=== PATIENT | female | born 1930 | race Caucasian/White ===

== ENCOUNTER 2017-07-06 13:25 | Outpatient (CLI) | payer MEDICARE, OTHER ==
--- NOTE | 2017-07-06 16:14 | RAD ---
PA AND LATERAL VIEWS OF CHEST: HISTORY: Dyspnea. COMPARISON: 09/04/2015 FINDINGS: The heart size is normal. The aorta is tortuous. No focal areas of consolidation, pneumothorax, fr ank pulmonary edema, or pleural effusions are seen. There are postop changes of vertebroplasty in t he lower thoracic spine. There are degenerative changes in the spine. IMPRESSION: No radiographic evidence of acute cardiopulmonary process. POS: DANIEL
--- OUTSIDE RECORDS SUMMARY | 2017-07-08 20:56 | XMS | Clinical Summary ---
:1930 Author Organization [facility] Address [address] [place] [address] Phone Care Team Providers Name Role Phone , Primary Care Provider Unavailable Allergies Not on File Current Medications Not on file Active Problems Not on file Social History Tobacco Use Types Packs/Day Years Used Date Never Assessed Sex Assigned at Date Recorded Not on file Last Filed Vital Signs Not on file Plan of Treatment Not on file Results Not on filefrom Last 3 Months
== END 2017-07-06 13:26 | disposition home or self-care (01) ==
LOC: RAD 13:25
PROVIDERS: ATTEND Internal Medicine Pulmonary Disease
DX: R06.00 Dyspnea, unspecified (principal)
CPT/HCPCS: 71020

== ENCOUNTER 2017-08-18 12:54 | Outpatient (CLI) | payer MEDICARE, OTHER ==
--- NOTE | 2017-08-18 14:21 | CT ---
CT THORAX HIGH RESOLUTION: Date: 08/18/17 HISTORY: 86-year-old female with pulmonary fibrosis. Dyspnea. TECHNIQUE: 1.25 mm slice thickness axial images with 10 mm intervals obtained through the lungs with the patient supine. Patient is unable to assume prone position. Because of the large intervals (gaps), this stud y is not intended to evaluate for neoplasm, infection, or any entity other than pulmonary fibrosis. FINDINGS: There is borderline or mild bronchiectasis involving bilateral lower lobes, upper lobes, and right mi ddle lobe. There are minimal subpleural reticular densities at the bilateral lung bases. There is no honeycombing. No ground-glass changes. There is an approximately 5 mm noncalcified pulmonary nodule i n the anterior segment of right upper lobe (axial image 9 of 26, series 2). There is a 4 mm noncalcif ied pulmonary nodule in the right upper lobe (axial image 8 of 26, series 2). The former was present on a 08/29/15 CT angiogram of the chest and is stable. The latter is not identified on prior scan. Cu rrently, there is no pleural effusion or pneumothorax. There is no cardiomegaly. There is atheroscler otic calcification of the aortic arch. There is tortuosity of the thoracic aorta. IMPRESSION: 1. No convincing evidence of UIP/IPF (usual interstitial pneumonia/idiopathic pulmonary fibrosis). 2. Minimal bronchiectasis. 3. Nonspecific small right upper lobe pulmonary nodules, incompletely assessed. 4. Atherosclerosis and tortuosity of thoracic aorta. POS: [facility]
--- NOTE | 2017-08-31 08:13 | PFT ---
PATIENT HISTORY: HEIGHT: 64 IN WEIGHT: 161 LBS SMOKER: NO HOW LONG: PACKS PER DAY: PRODUCTIVE COUGH: LUNG DISEASE: PHYSICIAN INTERPRETATION FINAL REPORT: Patient and fair effort and cooperation FVC 1.74 (72%), FEV1 1.30 (81%), FEV1/FVC 0.75. TLC 4.13 (92%), FRC 2.30 (83%), RV 2.0 (96%). Diffusion 8.48 (54%). There is a mild reduction to the FVC. The FEV1 falls within the lower limits of normal. The ratio does not suggest clear evidence of obstructive airflow limitation, though the TLC is normal, suggesting there is relative hyperexpansion. There is a nonsignificant improvement in the FEV1 and the FVC following administration of bronchodilation. The total lung capacity and residual volume fall within the normal limits. Diffusion capacity is moderately impaired. IMPRESSION: Overall, these pulmonary functions studies are most consistent with mild obstructive air flow limitation and a moderate reduction in gas exchange. No prior studies are available for comparison. Clinical and radiographic correlation should be considered. Central Scheduler: EDGAR Collar Feller: EDGAR HOUSTON
== END 2017-08-18 12:55 | disposition home or self-care (01) ==
LOC: CT 12:54
PROVIDERS: ATTEND Internal Medicine Critical Care Medicine
DX: J84.10 Pulmonary fibrosis, unspecified (principal); R06.00 Dyspnea, unspecified; J47.9 Bronchiectasis, uncomplicated; I70.0 Atherosclerosis of aorta; I77.1 Stricture of artery; R91.8 Other nonspecific abnormal finding of lung field
CPT/HCPCS: 71250; 94060; 94727; 94729

== ENCOUNTER 2019-10-09 19:01 | Inpatient (IN) | payer MEDICARE, OTHER ==
[2019-10-09] MEDS ORDERED: HYDROcodone/Acetaminophen 5/325 mg Tablet PO PRN ×2 (19:36)
[2019-10-09] MEDS ORDERED: Ondansetron PF 4 MG/2 ML Vial IVP PRN (19:36)
[2019-10-09] MEDS ORDERED: Milk Of Magnesia 30 ML UDCUP PO PRN (19:37)
[2019-10-09] MEDS ORDERED: Fleet Enema 133 ML BOT PR PRN (19:37)
[2019-10-09] MEDS ORDERED: cloNIDine 0.1 MG TAB PO PRN (19:37)
[2019-10-09] MEDS ORDERED: Bisacodyl 10 MG SUPP PR PRN (19:37)
[2019-10-09] MEDS: Sodium Chloride 0.9% 1,000 ML IV SCH (20:16)
[2019-10-09] MEDS: hydrALAZINE 10 MG TAB PO SCH (20:22)
[2019-10-09] MEDS: Lisinopril 20 MG TAB PO SCH (20:22)
[2019-10-09] MEDS: traMADol HCl 50 MG TAB PO PRN (20:22)
[2019-10-09] MEDS: cycloSPORINE 0.05% Ophthalmic Droperette EA EYE SCH (20:23)
[2019-10-09] MEDS: Carvedilol 25 MG TAB PO SCH (20:23)
[2019-10-09] MEDS: Timolol 0.5% Ophth Soln 5 ml Bottle EA EYE SCH (20:23)
--- NOTE | 2019-10-09 21:13 | HP ---
CHIEF COMPLAINT: Fall with head injury, headache HISTORY OF PRESENT ILLNESS: Ms. Baum, who prefers to go by Pat, was transferred from [facility] Emergency Department for a higher level of care after she sustained a fall resulting in a left subdural hematoma and multiple sites of intracranial hemorrhage. She was admitted to CCU for close neurologic monitoring. The patient is extremely hard of hearing, so the majority of the history was provided by her family at bedside. The patient sustained a fall at approximately 11:30 this morning. The patient lives at home alone, however, her daughter reportedly lives next door. The patient wears a cell phone around her neck and was able to call her daughter when she fell. The patient hit the back of her head and sustained an occipital laceration, which was repaired with prieto in the emergency department prior to transfer. The patient is complaining of headache. Daughter reports that the patient had no complaints of neck pain. The patient has chronic left arm and leg weakness that is residual status post right CVA in 2012. The patient is on Plavix and at 325 mg aspirin due to her stroke history. Family denies any cardiac history. Her daughter notes that she has exhibited more generalized weakness with intermittent falls over the recent months. Patient typically uses a tatyana walker to assist with ambulation. Daughter states that the patient seems to have difficulty raising her left leg up to take steps, therefore she has a shuffled gait. The family denies that she has footdrop, just says that she has difficulty picking up the leg to take steps. Otherwise, patient has good movement of her right side extremities. PHYSICAL EXAMINATION: The patient is somnolent, but awakens to verbal stimuli. She responds to questions appropriately, however, she requires repeated questioning and verbal instructions given her extreme hearing deficit. Patient has her bilateral hearing aids in place, however, her daughter states that the cervical collar the patient was wearing seems to be interfering with the hearing aid functioning. The patient is able to state her location. Pupils are equal, round, and reactive to light. The patient extraocular movements are intact. CN II-XII intact. No slurred speech. Extreme weakness and minimal movement of the left upper and lower extremities. Good movement and 4/5 strength in her right upper and lower extremities. Good anesthesia attending strength in the right hand, however only minimal muscle twitch with anesthesia attending strength on the left. The patient has a posterior scalp laceration with prieto in place. IMPRESSION AND DIAGNOSES: 1. Left subdural hematoma and multiple intracranial hemorrhages status post fall. 2. History of right side CVA, for which patient takes Plavix and 325 mg aspirin. 3. Type 2 diabetes mellitus. 4. Dyslipidemia. 5. Hypertension. PLAN: At this time, I have reviewed this case and all imaging with Dr. Guzmán. The patient was transferred to the [facility] in [place] for a higher level of care and CCU admission for close neurologic monitoring. Repeat head CT without contrast tomorrow morning. Q1 hour neuro checks. Head of bed 30 degrees. We will keep patient on bed rest overnight until we have obtained a repeat head CT, and if this is stable then we will begin to mobilize the patient and have her seen by PT/OT. We will hold all blood thinners at this time. Clear liquid diet. We have consulted our medical colleagues to assist with medical management. Family inquired about her anticipated plan of care upon discharge from the hospital. Discussed that perhaps patient would benefit from inpatient rehab versus home health physical therapy. We will discuss this further after we see how patient is doing well in the hospital. We will see patient in the morning. Call sooner for any neurologic changes or other concerns. This was a 50 minute initial visit in which greater than 50% of the time was spent in review of records, imaging, evaluation, examination of patient, and formulation of a plan. The remaining time was spent in counseling and coordination of care. Job ID: [id number] MTDD
[2019-10-10 06:04] LABS: #Lymphocytes 0.5 thou/uL (1.20-3.40); #Monocytes 1.1 thou/uL (0.11-0.59); #Neutrophils 8.6 thou/uL (1.40-6.50); %Basophils 0.2 % (0.0-1.0); %Eosinophils 0.3 % (0.0-10.0); %Lymphocytes 4.4 % (21.0-51.0); %Monocytes 11.1 % (0.0-10.0); Hemoglobin 11.7 g/dL (12.0-16.0); Mean Corpuscular HGB CONC 31.6 g/dL (32.0-36.0); Mean Corpuscular Hemoglobin 25.8 pg (27.0-31.0); Mean Corpuscular Volume 81.7 fL (78.0-98.0); Mean Platelet Volume 7.8 fL (7.4-10.4); Platelet Count 235 thou/uL (130-400); RBC Distribution Width 14.7 % (11.5-14.5); Red Blood Cell (RBC) Count 4.55 mill/uL (4.20-5.40); White Blood Cell (WBC) Count 10.2 thou/uL (4.8-10.8)
[2019-10-10 06:10] LABS: INR-International Normal Ratio 1.1; PTT 29.1 SEC (22.9-36.1)
[2019-10-10 06:22] LABS: Anion Gap 13 mmol/L (10-20); BUN (Urea Nitrogen) 17 mg/dL (9.8-20.1); Calc. Creatinine Clearance 57 mL/min (70-130); Calcium 8.2 mg/dL (7.8-10.44); Carbon Dioxide 26 mmol/L (23-31); Chloride 96 mmol/L (98-107); Estimated GFR-MDRD 79; Glucose 128 mg/dL (83-110); Potassium 3.3 mmol/L (3.5-5.1); Sodium 132 mmol/L (136-145)
--- NOTE | 2019-10-10 08:08 | CT ---
CT BRAIN WITHOUT CONTRAST: HISTORY: Left subdural hemorrhage/intracranial bleeds. COMPARISON: 09/11/2018 10/09/2019 TECHNIQUE: Multiple contiguous axial images were obtained in a CT of the brain without contrast. FINDINGS: There are scattered hypodensities in the subcortical and periventricular white matter, likely seconda ry to small vessel ischemic disease. There are developing contusions in the bilateral frontal lobes a nd in the left temporal lobe. This is greatest in the left temporal region. Blood is seen along the t entorium, along the anterior falx. There is also a small amount of subdural blood along the left fron toparietal convexity. This measures approximately 9 mm in thickness, which is slightly larger than th e prior examination. There is also slight shift of the midline to the right by approximately 3 mm. No downward herniation is seen. IMPRESSION: Evolving subdural and cerebral contusions, as above. There is slight increased shift of the midline a nd slight increased size of the left frontal parietal subdural hemorrhage. POS: C
[2019-10-10] MEDS: Amlodipine 10 MG TAB PO SCH (09:11)
[2019-10-10] MEDS: metFORMIN 500 MG TAB PO SCH ×3 (09:12→17:47)
[2019-10-10] MEDS: Carvedilol 25 MG TAB PO SCH ×2 (09:12→20:29)
[2019-10-10] MEDS: hydrALAZINE 10 MG TAB PO SCH ×3 (09:12→20:29)
[2019-10-10] MEDS: cycloSPORINE 0.05% Ophthalmic Droperette EA EYE SCH ×2 (09:14→20:38)
[2019-10-10] MEDS: Lisinopril 20 MG TAB PO SCH ×2 (09:14→20:29)
[2019-10-10] MEDS: Sodium Chloride 0.9% 1,000 ML IV SCH ×2 (09:16→13:30)
[2019-10-10] MEDS: traMADol HCl 50 MG TAB PO PRN ×2 (10:44→17:14)
[2019-10-10] MEDS: Timolol 0.5% Ophth Soln 5 ml Bottle EA EYE SCH ×2 (10:46→20:39)
--- NOTE | 2019-10-10 11:37 | PRG ---
DATE OF SERVICE: This is a 30-minute initial visit note, in which 30 minutes spent reviewing the imaging record, evaluation and examination of the patient, formulation of plan. Greater than 50% time was spent in counseling on Melia Baum. Ms. Baum is a pleasant 88-year-old woman. She lives alone. Her daughter does help with her daily activities. She fell on aspirin and Plavix, on these medications for history of CVA. She suffered a left convexity acute subdural hematoma in a contrecoup fashion along the falcine, acute subdural hematoma, and a coup left occipital subdural hematoma. There are also bifrontal hemorrhagic contusions, all of which are blossomed this morning. She remains neurologically intact and has severe presbycusis. She again has gotten worse. I will repeat a head CT tomorrow. I have discussed in detail with the daughter the poor outcomes following surgery or any nonoperative management in particular for acute subdural hematoma in the elderly, in particular at the age of 88 and about to be 89. She is very adamant that the patient would not want any of these treatments, and as such, she has made her DNR/DNI. We will continue to follow at this point, but obviously there is nothing warranting surgical intervention at this time. Job ID: [id number]
[2019-10-10] MEDS: LIFITEGRAST 5% EA EYE SCH ×2 (12:00→20:39)
[2019-10-10] MEDS ORDERED: Dextrose 50% Abboject 50 ML SYRINGE SLOW IVP PRN (12:37)
[2019-10-10] MEDS ORDERED: Dextrose 5% in Water 1,000 ML IV PRN (12:37)
[2019-10-10] MEDS ORDERED: HumaLOG 300 UNITS/3 ML VIAL SC PRN ×2 (12:37)
[2019-10-10] MEDS ORDERED: Potassium Chloride 20 MEQ TAB PO SCH (13:30)
--- NOTE | 2019-10-10 13:40 | CON ---
DATE OF CONSULTATION: PRIMARY CARE PHYSICIAN: Aren Elizalde MD. PRIMARY TEAM NEUROSURGERY: Dr. Guzmán. REASON FOR CONSULTATION: Medical management. HISTORY OF PRESENT ILLNESS: This is an 88-year-old white female with history of previous CVA, left-sided weakness, chronic dizziness, who had multiple falls in the last few months. She did have a fall at home. She hit the back of her head, was brought in to the [facility]. There, she was noted to have a subdural hematoma along with bilateral frontal intraparenchymal hemorrhage and subarachnoid hemorrhage. She was transferred here for neurosurgical management. Dr. Guzmán admitted her to the hospital, was watched here in the ICU overnight. She had a repeat CT scan today that showed blooming of the intraparenchymal hemorrhage. The patient was on aspirin and Plavix for her previous stroke after failure of ASA alone. These are being held currently. The patient is very hard of hearing and is not able to really give any history or respond to anything besides some very basic questions. The family states that this is similar to her normal mental status before the head injury. Three of her daughters are at the bedside. She also has two sons. They have made her do not attempt resuscitation. PAST MEDICAL HISTORY: 1. Hypertension. 2. Dyslipidemia. 3. Diabetes mellitus type 2, on oral hypoglycemics. 4. Previous cerebrovascular accident when her was dying with residual left-sided weakness. 5. Compression fractures of the thoracic and lumbar spine. 6. Possible gastroesophageal reflux disease. 7. Deconditioning. 8. Colon cancer in 1981, status post resection. PAST SURGICAL HISTORY: 1. Colon resection. 2. Total left knee arthroplasty. 3. Pinning of left femoral neck fracture. 4. Foot surgery. 5. Hysterectomy. 6. Toe amputations. 7. Tonsillectomy. SOCIAL HISTORY: No tobacco, alcohol, or illicit drug use. Patient lives by herself near her daughters in [place]. FAMILY HISTORY: Multiple family members including parents and her one of her daughters with early colon cancer. ALLERGIES: 1. CODEINE. 2. SULFA ANTIBIOTICS. 3. GENTAMICIN. 4. COUMADIN. 5. CLAMS. CURRENT MEDICATIONS: 1. Acetaminophen 650 mg each night. 2. Aspirin 325 mg daily. 3. Clopidogrel 75 mg daily. 4. MiraLAX 17 g p.o. daily as needed. 5. Trazodone 50 mg at night. 6. Vitamin B12 supplement one tablet every other day. 7. Amlodipine 10 mg daily. 8. Artificial Tears as needed. 9. Atorvastatin 10 mg daily. 10. Dulcolax 10 mg per rectum daily as needed. 11. Carvedilol 25 mg twice a day. 12. Vitamin D 1000 units daily. 13. Clonidine 0.1 mg 3 times a day. 14. Hydralazine 10 mg 3 times a day. 15. Latanoprost one drop in each eye daily. 16. Xiidra one drop in each eye twice a day. 17. Lisinopril 20 mg twice a day. 18. Magnesium hydroxide as needed. 19. Metformin 500 mg 3 times a day. 20. Sertraline 50 mg daily. 21. Timolol 1 drop in each eye twice a day. REVIEW OF SYSTEMS: Patient unable to give review of systems secondary to her head injury and almost complete deafness. PHYSICAL EXAMINATION: VITAL SIGNS: Blood pressure 155/66, pulse 77, respirations 20, temperature 97.8 , O2 saturation 97% on room air. GENERAL: This is a well-developed, well-nourished white female, in no acute distress. HEENT: Pupils equal, round, and reactive to light. Oropharynx clear without lesions, erythema, or exudate. NECK: Supple. No lymphadenopathy. No thyroid nodules or enlargement. HEART: Regular rate and rhythm. No murmurs, rubs, or gallops. LUNGS: Clear to auscultation bilaterally. No wheezes, crackles, or rhonchi. ABDOMEN: Soft, nontender to palpation. Normoactive bowel sounds. No hepatosplenomegaly or other masses. EXTREMITIES: No clubbing, cyanosis, or edema. SKIN: The patient has a stapled laceration to posterior scalp. No other skin lesions noted. NEUROLOGIC: The patient is alert. She is not able to answer questions about orientation. I was able to get her to understand, asking if she had any pain. She said some, but she could not tell me or would not tell me where it was. She is moving all extremities spontaneously. Her left is significantly weaker than her right though, this is chronic per the family. No significant facial droop to my exam. Her reflexes appear slightly increased on the left side compared to the right. LABORATORY DATA: Sodium of 132, potassium 3.3, chloride 96, glucose 128. The basic metabolic panel is normal otherwise. Coagulation profile normal. CBC is grossly within normal limits. CT of the brain done today shows evolving subdural and cerebral contusions with a slightly increased shift of the midline and slight increased size of the left frontoparietal subdural hemorrhage. ASSESSMENT: 1. Traumatic head injury with subdural hematomas and intraparenchymal hemorrhage as above, being managed by Neurosurgery. Aspirin and Plavix being held and being observed closely. The family does not believe that she would want any surgical intervention even if it became indicated, which she does not at this time. 2. Hypertension. The patient has resumed all her home antihypertensives and her blood pressure is under decent control at this time. 3. Hyperlipidemia. The patient is back on her statin. 4. Previous stroke. We will have to hold aspirin and Plavix for the near future. Can resume whenever Neurosurgery deems it is safe. We will continue statin and blood pressure control. 5. Gastrointestinal prophylaxis with a history of possible gastroesophageal reflux disease. We will go ahead and start her on some Pepcid twice a day. 6. Deep venous thrombosis prophylaxis. The patient has SCDs in place. She cannot receive any pharmacologic prophylaxis at this time due to her intracranial hemorrhage. CODE STATUS: Patient is a do not attempt resuscitation. Her medical decision makers are her daughters who are at the bedside. Her primary caregiver I believe is her daughter, Shira Baum. Thank you very much. Job ID: [id number] [facility]
--- NOTE | 2019-10-10 14:57 | CON ---
DATE OF CONSULTATION: 10/10/2019 SERVICE: Pulmonary Medicine. REASON FOR CONSULT: ICU patient. HISTORY OF PRESENT ILLNESS: The patient is an 88-year-old white female with past medical history significant for essentially nothing, other than advanced age and frequent falls. In the standing position, the patient sustained a mechanical fall. She called her daughter for help. She has sustained laceration on the head, and was subsequently brought to the Emergency Department. At that location, CT scan was performed, demonstrated small intracranial hemorrhage. That being said, neurologically, she did not have any significant obvious deficits. She denies any current fevers, chills, cough, sputum production, nausea, vomiting, or diarrhea. Prior to this event, she was in her usual state of health. PAST MEDICAL HISTORY: 1. Type 2 diabetes mellitus. 2. Hypertension. 3. Dyslipidemia. 4. History of CVA. 5. Gastroesophageal reflux disease. 6. History of compression fractures of the lumbar spine. 7. Deconditioning. PAST SURGICAL HISTORY: 1. Colon resection. 2. Total knee arthroplasty. 3. Foot surgery. 4. Hysterectomy. 5. [place] amputations. 6. Tonsillectomy. ALLERGIES: CODEINE AND SULFA. MEDICATIONS: List of her inpatient medications was reviewed. No specific updates were made at this time. FAMILY HISTORY: Noncontributory. SOCIAL HISTORY: Negative for alcohol, tobacco, or illicit drug use. She has no exposure to chemicals, dust, asbestos, or tuberculosis. REVIEW OF SYSTEMS: General, head, ears, eyes, nose, throat, cardiovascular, respiratory, GI, , musculoskeletal, neurologic, and skin are negative except as mentioned in HPI. PHYSICAL EXAMINATION: VITAL SIGNS: Afebrile, pulse 63, blood pressure 111/54, respirations 20, and saturation 96%, currently on room air. GENERAL: The patient is awake and alert, in no apparent distress. LUNGS: Decent air entry with no prolonged expiratory phase or wheezing present. HEART: Normal rate. Regular. ABDOMEN: Soft, nontender, and nondistended. Bowel sounds are positive. MUSCULOSKELETAL: No cyanosis or clubbing. No pitting in the bilateral lower extremities. NEUROLOGIC: Grossly nonfocal. LABORATORY DATA: WBC 10.2, hemoglobin 11.7, and platelets 235,000. INR 1.1. Potassium 3.3. Basic metabolic profile is otherwise unremarkable. IMAGING DATA: CT of the brain demonstrates intraparenchymal hematoma, as well as a subdural on the left. Minimal shift of the midline. ASSESSMENT: 1. Intraparenchymal hemorrhage. 2. Subdural hematoma. 3. Mechanical fall. DISCUSSION AND PLAN: We will watch her neurologic status very closely. Should she have any significant neurologic deterioration, Neurosurgery will be contacted. Pulmonary will continue to follow along. At this point, the patient would decline any advanced interventions like chest compressions or endotracheal intubation in the event that she has significant neurologic decline. Critical Care will follow. 70 minutes have been devoted to this patient in various activities. I personally reviewed all imaging studies and laboratory data noted within this document. For fifty percent of this time, I was interacting with the patient at the bedside or coordinating care with the care team. For the remainder of the time I was immediately available to the patient in the hospital unit. Job ID: [id number] MTDD
[2019-10-10] MEDS: Atorvastatin Calcium 10 MG TAB PO SCH (17:47)
[2019-10-10] MEDS: Famotidine 20 MG TAB PO SCH (20:29)
[2019-10-11] MEDS: Sodium Chloride 0.9% 1,000 ML IV SCH (06:28)
[2019-10-11 07:36] LABS: Anion Gap 10 mmol/L (10-20); BUN (Urea Nitrogen) 19 mg/dL (9.8-20.1); Calc. Creatinine Clearance 62 mL/min (70-130); Calcium 8.2 mg/dL (7.8-10.44); Carbon Dioxide 27 mmol/L (23-31); Chloride 99 mmol/L (98-107); Estimated GFR-MDRD 87; Glucose 117 mg/dL (83-110); Potassium 4.1 mmol/L (3.5-5.1); Sodium 132 mmol/L (136-145)
--- NOTE | 2019-10-11 07:56 | CT ---
Final report on overnight Direct Radiology study EXAMINATION: CT THE BRAIN WITHOUT CONTRAST INDICATION: Follow-up subdural hemorrhage COMPARISON: CT the brain dated October 10, 2019 4:41 AM FINDINGS: The subdural collection most prominently overlying the left anterior frontal convexity is relatively stable in size measuring between 9 and 10 mm. When accounting for slight differences in angulation and technique, this is likely stable. The 3 mm of [id number] midline shift is stable. The subdural hematoma collection along the right aspect of the falx cerebri is stable. The subdural collection overlying the right tentorium is stable appearing. Small amount of subdural collection overlies the p arietal convexities bilaterally which is stable. The parenchymal contusions involving the right frontal lobe and both anterior temporal lobes are stable. Basilar cisterns remain patent. The moderat e chronic small vessel white matter ischemic changes similar appearing. Paranasal sinus disease and mastoid air cells disease is stable. The skull is intact. IMPRESSION: I agree with the preliminary report provided. There is stable scattered subdural hematoma that is largely stable when accounting for slight differences in technique. There is residual 3 mm of [id number] midline shift. The largest subdural hematoma collection overlies the left anterior f rontal convexity measuring approximately 9 mm. Additional subdural collections are seen along the falx cerebri, bilateral parietal convexities and along the right tentorium. The parenchymal contusion s involving the right frontal lobe and both anterior temporal lobes are stable appearing.
[2019-10-11] MEDS: hydrALAZINE 10 MG TAB PO SCH ×3 (08:42→20:48)
[2019-10-11] MEDS: Carvedilol 25 MG TAB PO SCH ×2 (08:42→20:48)
[2019-10-11] MEDS: metFORMIN 500 MG TAB PO SCH ×3 (08:43→17:00)
[2019-10-11] MEDS: Lisinopril 20 MG TAB PO SCH ×2 (08:43→20:47)
[2019-10-11] MEDS: Amlodipine 10 MG TAB PO SCH (08:44)
[2019-10-11] MEDS: Timolol 0.5% Ophth Soln 5 ml Bottle EA EYE SCH ×2 (08:48→20:45)
[2019-10-11] MEDS: Famotidine 20 MG TAB PO SCH ×2 (09:39→20:48)
[2019-10-11] MEDS: cycloSPORINE 0.05% Ophthalmic Droperette EA EYE SCH ×2 (09:39→20:46)
[2019-10-11] MEDS: LIFITEGRAST 5% EA EYE SCH ×2 (09:39→20:44)
[2019-10-11] MEDS: Acetaminophen 325 MG TAB PO PRN ×2 (10:47→15:28)
--- NOTE | 2019-10-11 11:01 | PRG ---
DATE OF SERVICE: 10/11/2019 Ms. Baum is an 88-year-old female, who was admitted 2 days ago, status post fall, on aspirin and Plavix with prior history of right-sided CVA. The patient's repeat brain CT this morning remains stable overall. The patient is very hard of hearing and has difficulty with following verbal commands. However, she has good movement on the right side of her body. Left arm and leg are residually weak, status post stroke. Overall, the patient appears stable today compared to her prior evaluations. She opens her eyes quickly to tactile stimuli when she is padded on the arm. She is able to move her arm and leg and has 4+/5 strength in the handgrip on the right side. Overall, she remains neurologically intact. We will continue to monitor her neurologic status at this time. There is no current indication for surgical intervention. Her sodium has remained low at 132, both yesterday and today. We will encourage her to drink Gatorade and she will be on IV normal saline. Her potassium was low at 3.3 yesterday, but has improved to 4.1 today after receiving the potassium replacement protocol. We will continue to monitor the patient. Our hope is that she will begin to mobilize with physical therapy and occupational therapy. We will check on patient again tomorrow morning. Call for any neurologic changes or concerns. Job ID: [id number]
--- NOTE | 2019-10-11 15:47 | PRG ---
DATE OF SERVICE: 10/11/2019 SERVICE: Pulmonary Medicine. INTERVAL HISTORY: The patient is doing fine from a respiratory standpoint. Mentation-garner, she is having some waxing and waning neurologic changes. Sometimes, her speech affected, but otherwise, there had not been a significant change. PHYSICAL EXAMINATION: VITAL SIGNS: Afebrile; pulse 66; blood pressure 114/52; respirations 18; and saturation 95%, currently on 2 L nasal cannula. GENERAL: The patient is awake and alert, in no apparent distress. LUNGS: Decent air entry. No prolonged expiratory phase or wheezing is appreciated. HEART: Normal rate. Regular. ABDOMEN: Soft, nontender, and nondistended. Bowel sounds are positive. MUSCULOSKELETAL: No cyanosis or clubbing. There is no pitting in bilateral lower extremities. LABORATORY DATA: Basic metabolic profile is unremarkable. IMAGING DATA: CT of the brain demonstrates intraparenchymal bleed as well as subdural hematoma. Compared to yesterday, there has been no significant interval change, 3 mm [id number] shift. ASSESSMENT: 1. Intraparenchymal hemorrhage. 2. Subdural hematoma. 3. Mechanical fall from standing height. 4. Oropharyngeal dysphagia. DISCUSSION AND PLAN: The patient is doing okay from a neurologic standpoint. Imaging-garner, things are roughly stable. Pulmonary will continue to follow while the patient remains in this location. When Neurosurgery deems are appropriate for transition to the floor, she will have no further requirement for Pulmonary opinion, and I will sign off. Of note, she has a little oropharyngeal dysphagia. The family has requested that we allow her to take p.o. nutrition understanding the risk that aspiration would pose to her including sudden and/or pneumonia. They have firmly established that she is to be a DNI/DNR. Job ID: [id number] [facility]
--- NOTE | 2019-10-11 16:59 | PDOC.HOSPP ---
- Subjective Subjective: no acute events. ICH mgmt. - Objective Vital Signs & Weight: Vital Signs (12 hours) Temp Pulse Pulse Pulse BP BP BP 10/11/19 14:49 70 122/61 10/11/19 13:20 94 70 113/49 L 114/52 L 10/11/19 12:00 99.1 F 10/11/19 11:16 69 67 116/56 L 116/54 L 10/11/19 08:48 70 122/61 10/11/19 08:44 70 135/77 10/11/19 08:43 135/77 10/11/19 08:42 70 122/61 10/11/19 08:00 98.2 F Pulse Ox Pulse Ox Pulse Ox 10/11/19 14:49 10/11/19 13:20 70 L 93 L 10/11/19 12:00 10/11/19 11:16 95 92 L 10/11/19 08:48 10/11/19 08:44 10/11/19 08:43 10/11/19 08:42 10/11/19 08:00 94 L Weight Admit Weight 146 lb Weight 146 lb 6.191 oz Most Recent Monitor Data Heart Rate from ECG 66 NIBP 102/50 NIBP BP-Mean 67 Respiration from ECG 27 SpO2 93 I&O: 10/10/19 10/11/19 10/12/19 06:59 06:59 06:59 Intake Total 805 1936 Output Total 610 690 120 Balance 195 1246 -120 Result Diagrams: 10/10/19 05:56 10/11/19 07:01 Additional Labs: Accuchecks 10/11/19 10/11/19 10/10/19 16:46 05:46 20:49 POC Glucose 132 H 123 H 135 H 10/10/19 17:42 POC Glucose 175 H Hospitalist ROS - Medication Medications: Active Medications Generic Name Dose Route Start Last Admin Trade Name Freq PRN Reason Stop Dose Admin Acetaminophen 650 mg 10/09/19 19:34 10/11/19 15:28 Tylenol PO 650 mg Q6H PRN Administration Fever/Mild Pain 1-3 Amlodipine Besylate 10 mg 10/10/19 09:00 10/11/19 08:44 Norvasc PO 10 mg DAILY VENKATESH Administration Atorvastatin Calcium 10 mg 10/10/19 17:00 10/10/19 17:47 Lipitor PO 10 mg 1700 VENKATESH Administration Carvedilol 25 mg 10/09/19 21:00 10/11/19 08:42 Coreg PO 25 mg BID VENKATESH Administration Cholecalciferol 1,000 units 10/10/19 09:00 10/11/19 09:45 Vitamin D3 PO 1,000 units DAILY VENKATESH Administration Cyclosporine 0 ml 10/09/19 21:00 10/11/19 09:39 Restasis EA EYE Not Given BID VENKATESH Famotidine 20 mg 10/10/19 21:00 10/11/19 09:39 Pepcid PO 20 mg BID VENKATESH Administration Hydralazine HCl 10 mg 10/09/19 21:00 10/11/19 14:49 Apresoline PO Not Given TID [facility] Sodium Chloride 1,000 mls @ 50 mls/hr 10/10/19 13:23 10/11/19 06:28 Normal Saline 0.9% IV 1,000 mls .Q20H VENKATESH Administration Insulin Human Lispro 0 units 10/10/19 12:37 10/10/19 17:46 Humalog SC 2 units .MILD SLIDING SCALE PRN Administration Mild Correctional Scale Lisinopril 20 mg 10/09/19 21:00 10/11/19 08:43 Zestril PO 20 mg BID [facility] Administration Metformin HCl 500 mg 10/10/19 08:00 10/11/19 12:47 Glucophage PO 500 mg TID-WM VENKATESH Administration Ondansetron HCl 4 mg 10/09/19 19:36 10/10/19 12:46 Zofran IVP 4 mg Q6H PRN Administration Nausea/Vomiting Lifitegrast [Xiidra] 1 each 10/10/19 21:00 10/11/19 09:39 5% Ophthalmic Drops EA EYE 1 each BID VENKATESH Administration Sertraline HCl 50 mg 10/10/19 09:00 10/11/19 09:39 Zoloft PO 50 mg DAILY [facility] Administration Timolol Maleate 1 drop 10/09/19 21:00 10/11/19 08:48 Timoptic 0.5% Ophth Soln EA EYE 1 drop BID VENKATESH Administration Tramadol HCl 50 mg 10/09/19 19:35 10/10/19 17:14 Ultram PO 50 mg Q4H PRN Administration Moderate Pain (4-6) Hosp A/P - Plan old records reviewed/req ICH/SDH --monitored at the ICU unit --both NS and pulm on board --BP mgmt to keep it < 180 systolic --Keppra --stop ultram as it reduces the threshold for seizure Mild dysphagia -per ICU/ST Eval and recommendation HTN BP is good and will follow closely. -coreg, hydralazine, ACEI meachnical fall -PT/OT evaluation hyperglycemia --target < 180 -ON SSI + metformin Will follow her closely.
[2019-10-11] MEDS: Atorvastatin Calcium 10 MG TAB PO SCH (17:00)
[2019-10-11] MEDS: Latanoprost 0.005% Ophth Soln 2.5 ml Bottle EA EYE SCH (20:47)
[2019-10-12] MEDS: Artificial Tear Sol 15 ML BOT EA EYE PRN ×2 (00:08→04:55)
[2019-10-12] MEDS: Sodium Chloride 0.9% 1,000 ML IV SCH (01:03)
[2019-10-12 03:57] VITALS: BMI 26.8
[2019-10-12 04:17] LABS: Anion Gap 13 mmol/L (10-20); BUN (Urea Nitrogen) 15 mg/dL (9.8-20.1); Calc. Creatinine Clearance 72 mL/min (70-130); Calcium 8.1 mg/dL (7.8-10.44); Carbon Dioxide 23 mmol/L (23-31); Chloride 102 mmol/L (98-107); Estimated GFR-MDRD Greater than 90; Glucose 119 mg/dL (83-110); Sodium 134 mmol/L (136-145)
[2019-10-12 05:50] LABS: #Eosinphils 0.1 thou/uL (0.0-0.7); #Lymphocytes 0.5 thou/uL (1.20-3.40); #Monocytes 0.9 thou/uL (0.11-0.59); #Neutrophils 9.1 thou/uL (1.40-6.50); %Basophils 0.2 % (0.0-1.0); %Eosinophils 0.8 % (0.0-10.0); %Lymphocytes 4.9 % (21.0-51.0); %Monocytes 8.4 % (0.0-10.0); %Neutrophils 85.7 % (42.0-75.0); Hemoglobin 9.8 g/dL (12.0-16.0); Mean Corpuscular HGB CONC 30.5 g/dL (32.0-36.0); Mean Corpuscular Hemoglobin 25.2 pg (27.0-31.0); Mean Corpuscular Volume 82.8 fL (78.0-98.0); Mean Platelet Volume 7.8 fL (7.4-10.4); Platelet Count 208 thou/uL (130-400); RBC Distribution Width 14.5 % (11.5-14.5); Red Blood Cell (RBC) Count 3.89 mill/uL (4.20-5.40); White Blood Cell (WBC) Count 10.6 thou/uL (4.8-10.8)
[2019-10-12] MEDS: hydrALAZINE 10 MG TAB PO SCH ×3 (09:49→20:01)
[2019-10-12] MEDS: Amlodipine 10 MG TAB PO SCH (09:49)
[2019-10-12] MEDS: Carvedilol 25 MG TAB PO SCH ×2 (09:50→20:01)
[2019-10-12] MEDS: metFORMIN 500 MG TAB PO SCH ×3 (09:50→18:35)
[2019-10-12] MEDS: Famotidine 20 MG TAB PO SCH ×2 (09:52→20:01)
[2019-10-12] MEDS: cycloSPORINE 0.05% Ophthalmic Droperette EA EYE SCH ×2 (09:53→20:03)
[2019-10-12] MEDS: Lisinopril 20 MG TAB PO SCH ×2 (09:53→20:02)
[2019-10-12] MEDS: Timolol 0.5% Ophth Soln 5 ml Bottle EA EYE SCH ×2 (09:53→20:03)
[2019-10-12] MEDS: LIFITEGRAST 5% EA EYE SCH ×2 (09:54→20:03)
--- NOTE | 2019-10-12 13:18 | PRG ---
DATE OF SERVICE: 10/12/2019 Ms. Baum is now in day 4 of her hospital stay. Overall, she has remained neurologically stable. Both the nursing staff and the patient's family have stated that she intermittently waxes and wanes neurologically; however, this morning when evaluated, she was alert and oriented x3. She is able to state her full name, that she is at [facility], and that the year is 2019. She denied any complaints of headache, neck pain, or back pain. Her strength and movement in her right arm remain stable. 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 The patient seemed to be hearing better today with her hearing aid and was responding to questions appropriately. Her CT scan of the brain yesterday was stable. Her sodium level has improved from 132 yesterday to 134 today. We will continue to encourage restriction of free water and drinking of Gatorade. The patient remains on Keppra 250 mg b.i.d. Her vitals have remained stable. The patient remains neurologically stable at this time. There is no current indication for neurosurgical intervention, and our team will be signing off at this time to the hospitalist. We have discussed this transition of care with Dr. aSnders, who has graciously accepted managing the patient medically until she is discharged to inpatient rehab. We will follow up with the patient on an outpatient basis in 4 weeks for repeat head CT. We asked that the patient remain off Plavix and aspirin until her followup appointment with us. Job ID: [id number]
--- NOTE | 2019-10-12 17:49 | PRG ---
DATE OF SERVICE: 10/12/2019 SERVICE: Pulmonary Medicine. INTERVAL HISTORY: The patient is being fed by her family members. They decided some risks of aspiration. They do not want to pursue a feeding tube or a PEG tube. There has been no change to her condition neurologically overnight. Otherwise, there has been no respiratory events or other events in general. There were no fevers. PHYSICAL EXAMINATION: VITAL SIGNS: Afebrile. Pulse 70, blood pressure 124/55, respirations 22, saturation 95%, currently on room air. GENERAL: The patient is awake and alert, in no apparent distress. LUNGS: Decent air entry. No prolonged expiratory phase is appreciated. Minimal rhonchi are present. It clears with gentle cough. HEART: Normal rate, regular. ABDOMEN: Soft, nontender, nondistended. Bowel sounds are positive. MUSCULOSKELETAL: No cyanosis or clubbing. There is no pitting in the bilateral lower extremities. LABORATORY DATA: WBC 10.6, hemoglobin 9.8, platelets 208,000. INR 1.1. Basic metabolic profile is essentially unremarkable with an improving sodium of 134. Calcium 8.1. ASSESSMENT: 1. Intraparenchymal hemorrhage. 2. Subdural hematoma. 3. Mechanical fall from standing height. DISCUSSION AND PLAN: The patient is relatively stable neurologically. She is being considered for transition out of the hospital today. At this point, she has no further requirements for Pulmonary or Critical Care opinion, and I will sign off. Please call with additional questions or concerns through time. Job ID: [id number]
[2019-10-12] MEDS: Atorvastatin Calcium 10 MG TAB PO SCH (18:39)
[2019-10-12] MEDS: Latanoprost 0.005% Ophth Soln 2.5 ml Bottle EA EYE SCH (20:01)
[2019-10-12] MEDS: Acetaminophen 325 MG TAB PO PRN (20:02)
[2019-10-13] MEDS ORDERED: Lorazepam 2 MG/ML VIAL SLOW IVP SCH (00:15)
[2019-10-13] MEDS: Sodium Chloride 0.9% 1,000 ML IV SCH ×2 (01:29→12:38)
[2019-10-13] MEDS: metFORMIN 500 MG TAB PO SCH ×3 (08:54→16:02)
[2019-10-13] MEDS: Amlodipine 10 MG TAB PO SCH (08:54)
[2019-10-13] MEDS: hydrALAZINE 10 MG TAB PO SCH ×2 (08:55→16:01)
[2019-10-13] MEDS: Famotidine 20 MG TAB PO SCH (08:55)
[2019-10-13] MEDS: Lisinopril 20 MG TAB PO SCH (08:55)
[2019-10-13] MEDS: Carvedilol 25 MG TAB PO SCH (08:55)
[2019-10-13] MEDS: Timolol 0.5% Ophth Soln 5 ml Bottle EA EYE SCH (08:58)
[2019-10-13] MEDS: LIFITEGRAST 5% EA EYE SCH (09:03)
[2019-10-13] MEDS ORDERED: hydrALAZINE 20 MG/ML VIAL SLOW IVP PRN (09:18)
[2019-10-13] MEDS: cycloSPORINE 0.05% Ophthalmic Droperette EA EYE SCH (09:50)
--- NOTE | 2019-10-13 14:58 | PRG ---
DATE OF SERVICE: 10/13/2019 Ms. Baum is on hospital day #5 after sustaining a fall and multiple intracranial hemorrhages on Thursday. The patient remains neurologically stable. She has been transferred out of the critical care unit to the floor. She is awake, alert, and appropriate when evaluated today. She continues to have weakness on right side of her body, but this is stable during her hospital stay. She has left upper and lower extremity residual deficits from prior CVA. Her daughter is at bedside, notes that since her fall, she has been complaining of left foot and ankle pain, particularly upon weightbearing with physical therapy. Her left foot does turn inward on exam. Perhaps a walking boot would be helpful for the patient to wear when weightbearing. Discussed with family that the patient will benefit from continued therapies and likely plan will be to discharge the patient to a Swing facility in [place]. Case Management is helping with placement. The patient remains on Keppra at this time. Overall, she has been stable during her hospital stay. Discussed with family that we will be signing off on the case and we will follow up with the patient in our clinic in 3 to 4 weeks for a repeat brain CT. At this time, the patient has remained neurologically stable. Neurosurgery will be signing off. We will be available for discussion if needed. Please call for any concerns or questions. We will arrange for the patient's followup on an outpatient basis. Job ID: [id number]
[2019-10-13 15:52] VITALS: BP 146/87; TEMP 98.4
[2019-10-13] MEDS: Atorvastatin Calcium 10 MG TAB PO SCH (16:02)
--- NOTE | 2019-10-13 21:53 | DIS ---
DATE OF ADMISSION: 10/09/2019 DATE OF DISCHARGE: 10/13/2019 DISCHARGE DIAGNOSES: 1. Left subdural hematoma and multiple intracranial hemorrhages preceded by fall. 2. Mechanical fall. 3. History of right-sided cerebrovascular accident. 4. Type 2 diabetes mellitus, hyperlipidemia, and hypertension. DISCHARGE MEDICATIONS: 1. Amlodipine 10 mg daily. 2. Artificial Tears. 3. Lipitor 10 mg at bedtime. 4. Bisacodyl 10 mg as needed. 5. Coreg 25 mg twice a day. 6. Cholecalciferol (vitamin D3), daily. 7. Clonidine 0.1 mg three times a day. 8. Lisinopril 10 mg twice a day. 9. Metformin 500 mg twice a day. 10. Sertraline 50 mg daily. 11. Timolol eye drops. 12. Keppra 250 mg twice a day. PHYSICAL EXAMINATION: VITAL SIGNS: On the day of discharge, her temp is 98.1 and blood pressure 151/72. GENERAL: The patient is alert, oriented, and she is resting comfortably in bed, family at bedside. HEENT: I have examined her left ear as patient's daughter was very concerned about some bleeding that happened two days previously. Otoscope did not reveal any major blisters or acute bleed. There is some dry blood. Small soft tissue of undetermined significance at this point. CARDIOVASCULAR: Regular rate and rhythm without murmurs, rubs, or gallops. LUNGS: Clear to auscultation bilaterally without wheezing, rales, or rhonchi. HOSPITAL COURSE: This is an 88-year-old female admitted by the Neurosurgery for subdural hematoma and multiple intracranial hemorrhages, admitted in the ICU and followed by Neurosurgery closely. After a close monitoring and stabilization, it has been decided to send her to the rehab. The patient had a small episode of bleeding from her left ear. It stopped spontaneously. Her aspirin and Plavix were on hold until seen by her neurosurgeon in 2 weeks' time. She will be following with the Neurosurgery Clinic in 4 weeks' time with repeat CT head. She has been informed not to take aspirin and Plavix until followup with Neurosurgery Clinic. On discharge medications, they were not continued and/or prescribed. DISCHARGE INSTRUCTIONS: 1. Activity as tolerated. 2. Follow up with primary care physician in a week. 3. Follow up with Neurosurgery Clinic in 4 weeks with Mary Dang PA-C. Repeat CT head in 1 month. Please do not take aspirin or Plavix until followup with the Neurosurgery Clinic. TIME SPENT: Discharge time took over 30 minutes. Job ID: [id number]
== END 2019-10-13 19:09 | DRG 86 ==
LOC: CCU 19:01 → 2SE 10-12 22:39
PROVIDERS: ADMIT Emergency Medicine; ATTEND Emergency Medicine
DX: S06.5X0A Traumatic subdural hemorrhage without loss of consciousness, initial encounter (principal); I69.954 Hemiplegia and hemiparesis following unspecified cerebrovascular disease affecting left non-dominant side; I10 Essential (primary) hypertension; E78.5 Hyperlipidemia, unspecified; Z66 Do not resuscitate; R13.10 Dysphagia, unspecified; S06.360A Traumatic hemorrhage of cerebrum, unspecified, without loss of consciousness, initial encounter; E11.65 Type 2 diabetes mellitus with hyperglycemia; Z96.652 Presence of left artificial knee joint; Z85.038 Personal history of other malignant neoplasm of large intestine; Z90.49 Acquired absence of other specified parts of digestive tract; Z90.710 Acquired absence of both cervix and uterus; Z87.81 Personal history of (healed) traumatic fracture; Z80.0 Family history of malignant neoplasm of digestive organs; Z91.09 Other allergy status, other than to drugs and biological substances; W18.39XA Other fall on same level, initial encounter; Y93.89 Activity, other specified; Y92.098 Other place in other non-institutional residence as the place of occurrence of the external cause
CPT/HCPCS: 36415; 36416; 70450; 80048; 85025; 85610; 85730; J1953; J2405; J3490